=== PATIENT | male | born 1950 | race Caucasian/White ===

== ENCOUNTER → 2018-12-03 | Day surgery (SDC) | payer OTHER ==
[~2018-12-03] MED LIST: FENTANYL CITRATE/PF 100MCG/2 ML INJ ONE; LEVOTHYROXINE112 MCG PO; LOSARTAN POTAS100 MG PO; MIDAZOLAM HCL 2 MG/2 ML VIAL ONE; OR PHACO EYE KIT ONE; PREOP PHACO EYE KIT ONE
[2018-12-03 15:00] VITALS: BP 134/81
== END | disposition home or self-care (01) ==
LOC: OR 11:40
PROVIDERS: ATTEND Ophthalmology
DX: H25.11 Age-related nuclear cataract, right eye (principal); Z88.2 Allergy status to sulfonamides; M75.102 Unspecified rotator cuff tear or rupture of left shoulder, not specified as traumatic; I10 Essential (primary) hypertension; Z94.81 Bone marrow transplant status; E03.9 Hypothyroidism, unspecified; Z92.21 Personal history of antineoplastic chemotherapy; Z92.3 Personal history of irradiation; Z85.72 Personal history of non-Hodgkin lymphomas; Z87.891 Personal history of nicotine dependence
CPT/HCPCS: 66984; J2250; V2632; J3010